=== PATIENT | female | born 1960 | race Asian ===

== ENCOUNTER 2022-05-13 13:30 | Outpatient (RCR) | payer BC, SELFPAY | END 2022-08-22 14:13 | disposition home or self-care (01) | PROVIDERS: PCP Family Medicine; Visit Provider Internal Medicine Sports Medicine | DX: M70.62 Trochanteric bursitis, left hip (principal); Z51.89 Encounter for other specified aftercare | CPT/HCPCS: 97110; 97112; 97140; 97162 ==